=== PATIENT | female | born 1965 | race Caucasian/White ===

== ENCOUNTER → 2019-05-12 10:14 | Outpatient (CLI) | payer BC, SELFPAY ==
--- NOTE | 2019-05-12 10:18 | DI.RAD.S_ITS ---
PROCEDURE: XR LUMBAR SPINE MIN 4V INDICATIONS: lower back pain TECHNIQUE: 5 views of the lumbar spine were acquired. COMPARISON: [facility], , SPINE LUMB 2 OR 3VW, 01/25/2012, 10:30. FINDINGS: Bones: No fracture or focal osseous destruction. Multilevel degenerative endplate sclerosis and spurring. Diffuse facet arthropathy. Straightening of the normal lordotic curvature. Moderate narrowing of L5-S1 disc space. Mild narrowing of the L1-L2 and L3-L4 disc space. Soft tissues: Overlying bowel gas pattern is normal. No suspicious soft tissue calcifications. Oblique images: No pars defects. IMPRESSION: Mild multilevel lumbar spondylosis and facet arthropathy. No definite interval progression since 01/25/12 Dictated by: Giuliano Vila M.D. on 05/12/2019 at 12:11 Approved by: Giuliano Vila M.D. on 05/12/2019 at 12:14
== END ==
PROVIDERS: PCP Physician Assistant Medical; Visit Provider Physical Medicine & Rehabilitation
DX: M54.5 Low back pain (principal); M47.816 Spondylosis without myelopathy or radiculopathy, lumbar region; M47.817 Spondylosis without myelopathy or radiculopathy, lumbosacral region
CPT/HCPCS: 72110

== ENCOUNTER → 2019-05-23 08:43 | Outpatient (CLI) | payer BC, SELFPAY ==
--- NOTE | 2019-05-23 08:44 | DI.MRI.S_ITS ---
PROCEDURE: MR LUMBAR SPINE WO CON INDICATIONS: lower back pain TECHNIQUE: Noncontrast sagittal T1 spin echo and T2 fast echo, sagittal STIR, axial T1 and T2 fast spin echo through the lumbar spine. In cases with scoliosis, additional coronal T2 fast spin echo may be performed. COMPARISON: [facility], MR, LUMBAR SPINE W&W/O CONTRAST, 01/31/2012, 19:01. FINDINGS: Image quality: Excellent. Alignment and Curvature: There is normal bony alignment. Bone Marrow: Marrow is of normal overall signal. No acute vertebral body compression fractures. Spinal Cord: Conus medullaris terminates at the L1-L2 level. Visualized cord demonstrates normal signal and size. Paraspinous Soft Tissues: No paravertebral masses. There is nonspecific, dependent posterior subcutaneous soft tissue edema from level of L1-sacrum L1-L2: Normal appearance. L2-L3: Normal appearance. L3-L4: No canal stenosis. Lateral recesses appear patent. Minimal bilateral foraminal narrowing. L4-L5: Bilateral facet disease otherwise normal appearance. L5-S1: No canal or lateral recess narrowing. Mild left foraminal narrowing. No right foraminal stenosis. Bilateral facet arthropathy IMPRESSION: No high-grade canal stenosis. Minimal bilateral L3-L4, and mild left L5-S1 foraminal narrowing. No interval change. Dictated by: Giuliano Vila M.D. on 05/23/2019 at 14:57 Approved by: Giuliano Vila M.D. on 05/23/2019 at 15:09
== END ==
PROVIDERS: PCP Physician Assistant Medical; Visit Provider Physical Medicine & Rehabilitation
DX: M47.817 Spondylosis without myelopathy or radiculopathy, lumbosacral region (principal); M54.5 Low back pain
CPT/HCPCS: 72148